=== PATIENT | female | born 1940 | race Caucasian/White ===

== ENCOUNTER 2017-01-19 18:00 | Inpatient (IN) | payer BC, MEDICARE ==
[2017-01-19] VITALS (8 sets, daily range): BP systolic 134–172; BP diastolic 85–108; PULSE 78–98; RESP 16–22; TEMP 97.3–98.2; O2SAT 97–100
[~2017-01-19] VITALS: Ht 154.9 cm; Wt 88.6 kg
[2017-01-19] MEDS ORDERED: methylPREDNISolone SOD SUCC 125 MG/2 ML VIAL IVP ONE (19:00)
[2017-01-19] MEDS ORDERED: SODIUM CHLORIDE 0.9% FLUSH 10 ML FLUSH IVF PRN (19:00)
[2017-01-19] MEDS: RESP: ALBUTEROL 2.5 MG/IPRATROPIUM 0.5 MG NEB (SCH) INH ×2 (19:02→19:09)
[2017-01-19 19:07] LABS: AUTOMATED NEUTROPHIL # 7.7 TH/MM3 (1.8-7.7); BASOPHIL % 0.4 % (0.0-2.0); EOSINOPHIL % 0.3 % (0.0-4.0); HEMATOCRIT 41.2 % (35.0-46.0); LYMPH % 11.3 % (9.0-44.0); MEAN CELL VOLUME 93.9 FL (80.0-100.0); MEAN CORPUSCULAR HEMOGLOBIN 31.6 PG (27.0-34.0); MEAN CORPUSCULAR HGB CONC 33.6 % (32.0-36.0); MONO % 5.7 % (0.0-8.0); NEUT % 82.3 % (16.0-70.0); PLATELET COUNT 357 TH/MM3 (150-450); RED BLOOD COUNT 4.39 MIL/MM3 (4.00-5.30); RED CELL DISTRIBUTION WIDTH 18.3 % (11.6-17.2); WHITE BLOOD COUNT 9.2 TH/MM3 (4.0-11.0)
[2017-01-19 19:11] LABS: HEMO FLAGS DIFF FINAL
[2017-01-19 19:17] LABS: CHLORIDE 97 MEQ/L (98-107); SODIUM (NA) 134 MEQ/L (136-145)
[2017-01-19 19:21] LABS: ANION GAP 12 MEQ/L (5-15); APTT (PATIENT) 32.4 SEC (24.3-30.1); BICARBONATE 25.5 MEQ/L (21.0-32.0); BLOOD UREA NITROGEN 22 MG/DL (7-18); INTERNATIONAL NORMALIZED RATIO 1.3 RATIO; PROTHROMBIN TIME - PATIENT 14.2 SEC (9.8-11.6)
[2017-01-19 19:24] LABS: ALT (GPT) 29 U/L (10-53); AST (GOT) 24 U/L (15-37)
[2017-01-19 19:25] LABS: GLOMERULAR FILTRATION RATE 48 ML/MIN (>89)
[2017-01-19 19:26] LABS: TOTAL BILIRUBIN ADULT 1.3 MG/DL (0.2-1.0)
[2017-01-19 19:27] LABS: ALKALINE PHOSPHATASE 92 U/L (45-117); CREATINE KINASE 123 U/L (26-192)
--- NOTE | 2017-01-19 19:28 | PD ---
HPI Chief Complaint: Respiratory Symptoms Time Seen by Provider: 18:24 Travel History International Travel<30 days: No Contact w/Intl Traveler<30days: No Traveled to known affect area: No History of Present Illness HPI Patient is a 76-year-old female who comes in complaining of shortness of breath. She has history of COPD and wears oxygen at home, mostly at night. She says she started feeling short of breath yesterday while she was packing cleaning her house. She flew here from [place] today and she says her shortness of breath got worse. She also reports sweating. She has been wearing her oxygen urine since this morning, but still feels very short of breath. She denies any chest pain. She has had some leg swelling. She denies fever or chills. [facility] Past Medical History Atrial Fibrillation: Yes Congestive Heart Failure: Yes COPD: Yes Diabetes: Yes Patient Takes Glucophage: Yes Thyroid Disease: Yes Influenza Vaccination: Yes ?: Not Past Surgical History Eye Surgery: Yes (EYELIDS) Social History Alcohol Use: No Tobacco Use: No (QUIT 1996) Substance Use: No Allergies-Medications (Allergen,Severity, Reaction): Coded Allergies: No Known Allergies (Unverified , 01/19/17) Review of Systems Except as stated in HPI: all other systems reviewed are Neg General / Constitutional: No: Fever, Chills HENT: No: Headaches, Lightheadedness Cardiovascular: No: Chest Pain or Discomfort Respiratory: Positive: Shortness of Breath Gastrointestinal: No: Nausea, Vomiting Musculoskeletal: Positive: Edema Skin: No Rash, No Change in Pigmentation Neurologic: No: Weakness, Dizziness Physical Exam Narrative GENERAL: Awake and alert, in no acute distress. SKIN: Sweaty, no lesions or signs of infection. HEAD: Atraumatic. Normocephalic. EYES: Pupils equal and round. No scleral icterus. ENT: Mucous membranes pink and moist. NECK: Trachea midline. No JVD. CARDIOVASCULAR: Regular rate and rhythm. No murmur appreciated. RESPIRATORY: No accessory muscle use. Clear to auscultation. Breath sounds equal bilaterally. GASTROINTESTINAL: Abdomen soft, non-tender, nondistended. MUSCULOSKELETAL: No obvious deformities. No clubbing. No cyanosis. 1+ pitting edema bilateral lower extremities. NEUROLOGICAL: Awake and alert. No obvious cranial nerve deficits. Motor grossly within normal limits. Normal speech. PSYCHIATRIC: Appropriate mood and affect; insight and judgment normal. Data Data Last Documented VS Vital Signs Date Time Temp Pulse Resp B/P Pulse Ox O2 Delivery O2 Flow Rate FiO2 01/19/17 18:30 98 16 158/99 99 Nasal Cannula 4 01/19/17 18:15 98.2 Orders Complete Blood Count With Diff (01/19/17 18:47) Comprehensive Metabolic Panel (01/19/17 18:47) B-Type Natriuretic Peptide (01/19/17 18:47) Act Partial Throm Time (Ptt) (01/19/17 18:47) Prothrombin Time / Inr (Pt) (01/19/17 18:47) Ckmb (Isoenzyme) Profile (01/19/17 18:47) Troponin I (01/19/17 18:47) Iv Access Insert/Monitor (01/19/17 18:47) Electrocardiogram (01/19/17 18:47) Ecg Monitoring (01/19/17 18:47) Oximetry (01/19/17 18:47) Oxygen Administration (01/19/17 18:47) Chest, Single Ap (01/19/17 18:47) Ct Pulmonary Angiogram (01/19/17 18:47) Sodium Chloride 0.9% Flush (Ns Flush) (01/19/17 19:00) Methylprednisolone So Succ Inj (Solumedr (01/19/17 19:00) Albuterol-Ipratropium Neb (Duoneb Neb) (01/19/17 19:00) Labs Laboratory Tests Test 01/19/17 18:20 White Blood Count 9.2 TH/MM3 Red Blood Count 4.39 MIL/MM3 Hemoglobin 13.9 GM/DL Hematocrit 41.2 % Mean Corpuscular Volume 93.9 FL Mean Corpuscular Hemoglobin 31.6 PG Mean Corpuscular Hemoglobin 33.6 % Concent Red Cell Distribution Width 18.3 % Platelet Count 357 TH/MM3 Mean Platelet Volume 8.3 FL Neutrophils (%) (Auto) 82.3 % Lymphocytes (%) (Auto) 11.3 % Monocytes (%) (Auto) 5.7 % Eosinophils (%) (Auto) 0.3 % Basophils (%) (Auto) 0.4 % Neutrophils # (Auto) 7.7 TH/MM3 Lymphocytes # (Auto) 1.0 TH/MM3 Monocytes # (Auto) 0.5 TH/MM3 Eosinophils # (Auto) 0.0 TH/MM3 Basophils # (Auto) 0.0 TH/MM3 CBC Comment DIFF FINAL Differential Comment Prothrombin Time 14.2 SEC Prothromb Time International 1.3 RATIO Ratio Activated Partial 32.4 SEC Thromboplast Time Sodium Level 134 MEQ/L Potassium Level 4.0 MEQ/L Chloride Level 97 MEQ/L Carbon Dioxide Level 25.5 MEQ/L Anion Gap 12 MEQ/L Blood Urea Nitrogen 22 MG/DL Random Glucose 164 MG/DL Calcium Level 9.3 MG/DL Albumin 4.0 GM/DL MDM Medical Decision Making Medical Screen Exam Complete: Yes Emergency Medical Condition: Yes Interpretation(s) ECG shows A. fib, rate controlled at 86. Differential Diagnosis COPD versus pneumonia versus ACS versus PE Narrative Course Patient is a 76-year-old female who comes in complaining of shortness of breath. Exam shows no acute abnormalities other than sweaty skin. IV established, labs sent. Patient given 3 duo nebs as well as Solu-Medrol. Patient signed out to Dr. Dyer to follow-up testing and disposition appropriately. Condition: Stable Sonal Kumar MD January 19, 2017 19:28
[2017-01-19 19:39] LABS: CKMB 5.5 NG/ML (0.5-3.6)
--- NOTE | 2017-01-19 19:56 | RADHPO ---
EXAM DATE/TIME: 01/19/2017 18:54 [facility] COMPARISON: No previous studies available for comparison. INDICATIONS : Shortness of breath. MEDICAL HISTORY : None. SURGICAL HISTORY : None. ENCOUNTER: Initial ACUITY: 1 day PAIN SCORE: 0/10 LOCATION: Bilateral chest FINDINGS: A single view of the chest demonstrates cardiomegaly and some interstitial prominence characteristic of mild edema. Small effusions. No pneumothorax. CONCLUSION: 1. Mild congestive heart failure. Alan Macias MD on January 19, 2017 at 19:52 Board Certified Radiologist. This report was verified electronically.
[2017-01-19] MEDS ORDERED: HYDR25TA5 PO (19:59)
[2017-01-19] MEDS ORDERED: AMIO200T PO (19:59)
[2017-01-19] MEDS ORDERED: METF1000 PO (19:59)
[2017-01-19] MEDS ORDERED: LOSA100T PO (19:59)
[2017-01-19] MEDS ORDERED: LEVO125T4 PO (19:59)
[2017-01-19] MEDS ORDERED: APIX5TAB PO (19:59)
[2017-01-19] MEDS ORDERED: FUROSEMIDE 40 MG/4 ML VIAL IV PUSH ONE (20:00)
--- NOTE | 2017-01-19 20:10 | RADHPO ---
EXAM DATE/TIME: 01/19/2017 19:34 [facility] COMPARISON: No previous studies available for comparison. INDICATIONS : Shortness of breath. IV CONTRAST: 70 cc Omnipaque 350 (iohexol) IV RADIATION DOSE: 17.86 CTDIvol (mGy) MEDICAL HISTORY : Congestive hearrt failure. Chronic obstructive pulmonary disease. Diabetes. SURGICAL HISTORY : None. ENCOUNTER: Initial ACUITY: 1 day PAIN SCALE: 0/10 LOCATION: chest TECHNIQUE: Volumetric scanning of the chest was performed using a pulmonary embolism protocol MIP images were re constructed. Using automated exposure control and adjustment of the mA and/or kV according to patien t size, radiation dose was kept as low as reasonably achievable to obtain optimal diagnostic quality images. FINDINGS: No filling defects to suggest pulmonary embolic disease. There are small bilateral pleural effusions are, right greater than left. Minimal interstitial edema. Moderate coronary calcifications. There is a small hiatal hernia. There is a 6 mm nodule in the left lower lobe posteriorly. Laboratory calcifications. Mildly enlarged 1.3 cm prevascular lymph node. Multiple 2 cm subcarinal lymph node. CONCLUSION: 1. Negative for pulmonary embolus. Small pleural effusions. Moderate coronary calcifications. Mild me diastinal adenopathy. Mild interstitial edema. Alan Macias MD on January 19, 2017 at 20:03 Board Certified Radiologist. This report was verified electronically.
[2017-01-19 20:39] LABS: BLOOD, URINE SMALL (NEG); GLUCOSE,URINE NEG (NEG); KETONE, URINE NEG (NEG); NITRITE,URINE NEG (NEG)
[2017-01-19] MEDS ORDERED: IOHEXOL 350 MG/ML 10 ML VIAL (for RAD DIAG) IV ONE (20:40)
[2017-01-19 20:44] LABS: URINE COLOR STRAW (YELLW/STRAW)
[2017-01-19 20:45] LABS: BACTERIA, URINE OCC /hpf; COMMENT (UR) CULTURE INDICATED; CULTURE IF INDICATED CULTURE INDICATED; SQUAMOUS EPITHELIAL CELL URINE 0-5 /hpf (0-5)
--- NOTE | 2017-01-19 20:48 | PD ---
Physical Exam Time Seen by Provider: 20:[address] Hull left this patient with me to check the laboratory and CT and make a disposition. Data Data Last Documented VS Vital Signs Date Time Temp Pulse Resp B/P Pulse Ox O2 Delivery O2 Flow Rate FiO2 01/19/17 18:30 98 16 158/99 99 Nasal Cannula 4 01/19/17 18:15 98.2 Orders Complete Blood Count With Diff (01/19/17 18:47) Comprehensive Metabolic Panel (01/19/17 18:47) B-Type Natriuretic Peptide (01/19/17 18:47) Act Partial Throm Time (Ptt) (01/19/17 18:47) Prothrombin Time / Inr (Pt) (01/19/17 18:47) Ckmb (Isoenzyme) Profile (01/19/17 18:47) Troponin I (01/19/17 18:47) Iv Access Insert/Monitor (01/19/17 18:47) Electrocardiogram (01/19/17 18:47) Ecg Monitoring (01/19/17 18:47) Oximetry (01/19/17 18:47) Oxygen Administration (01/19/17 18:47) Chest, Single Ap (01/19/17 18:47) Ct Pulmonary Angiogram (01/19/17 18:47) Sodium Chloride 0.9% Flush (Ns Flush) (01/19/17 19:00) Methylprednisolone So Succ Inj (Solumedr (01/19/17 19:00) Albuterol-Ipratropium Neb (Duoneb Neb) (01/19/17 19:00) CKMB (01/19/17 18:20) CKMB% (01/19/17 18:20) Urinalysis - C+S If Indicated (01/19/17 19:31) Furosemide Inj (Lasix Inj) (01/19/17 20:00) Iohexol 350 Inj (Omnipaque 350 Inj) (01/19/17 20:40) Urine Culture (01/19/17 20:30) Ceftriaxone Inj (Rocephin Inj) (01/19/17 21:00) Bedside Glucose MARIBEL.AC&HS (01/19/17 20:47) Blood Glucose Goal (Criteria) (01/19/17 20:47) Hypoglycemia 51 - 69 Mg/Dl (01/19/17 20:47) Hypoglycemia 50 Mg/Dl Or < (01/19/17 20:47) Notify Dr: Other (01/19/17 20:47) Dextrose 50% In Juliane (Vial) Inj (D50w (Vi (01/19/17 21:00) Glucagon Inj (Glucagon Inj) (01/19/17 21:00) Insulin Aspart Supplemtl Scale (Novolog (01/19/17 21:00) Admit To Inpatient (01/19/17 ) Vital Signs (Adult) Q4H (01/19/17 20:47) Activity Oob With Assistance (01/19/17 20:47) Reclamation Furnace Operator / Telemetry .CONTINUOUS (01/19/17 20:47) Intake + Output MARIBEL.QSHIFT (01/19/17 20:47) Diet 1800 Ada Cons Carb (01/20/17 Breakfast) Sodium Chlor 0.9% 1000 Ml Inj (Ns 1000 M (01/19/17 20:47) Sodium Chloride 0.9% Flush (Ns Flush) (01/19/17 21:00) Sodium Chloride 0.9% Flush (Ns Flush) (01/19/17 21:00) Ondansetron Inj (Zofran Inj) (01/19/17 21:00) Bisacodyl Supp (Dulcolax Supp) (01/19/17 21:00) Comprehensive Metabolic Panel (01/20/17 06:00) Complete Blood Count With Diff (01/20/17 06:00) Troponin I (01/20/17 00:00) Troponin I (01/20/17 06:00) Pharmacologic Contraindication (01/19/17 20:47) Acetaminophen (Tylenol) (01/19/17 21:00) Acetamin-Hydrocod 325-5 Mg ([place] 5-325 (01/19/17 21:00) Morphine Inj (Morphine Inj) (01/19/17 21:00) Inpatient Certification (01/19/17 ) Amiodarone (Cordarone) (01/20/17 09:00) Apixaban (Eliquis) (01/19/17 21:00) Losartan (Cozaar) (01/20/17 09:00) Labs Laboratory Tests Test 01/19/17 01/19/17 18:20 20:30 White Blood Count 9.2 TH/MM3 Red Blood Count 4.39 MIL/MM3 Hemoglobin 13.9 GM/DL Hematocrit 41.2 % Mean Corpuscular Volume 93.9 FL Mean Corpuscular Hemoglobin 31.6 PG Mean Corpuscular Hemoglobin 33.6 % Concent Red Cell Distribution Width 18.3 % Platelet Count 357 TH/MM3 Mean Platelet Volume 8.3 FL Neutrophils (%) (Auto) 82.3 % Lymphocytes (%) (Auto) 11.3 % Monocytes (%) (Auto) 5.7 % Eosinophils (%) (Auto) 0.3 % Basophils (%) (Auto) 0.4 % Neutrophils # (Auto) 7.7 TH/MM3 Lymphocytes # (Auto) 1.0 TH/MM3 Monocytes # (Auto) 0.5 TH/MM3 Eosinophils # (Auto) 0.0 TH/MM3 Basophils # (Auto) 0.0 TH/MM3 CBC Comment DIFF FINAL Differential Comment Prothrombin Time 14.2 SEC Prothromb Time International 1.3 RATIO Ratio Activated Partial 32.4 SEC Thromboplast Time Sodium Level 134 MEQ/L Potassium Level 4.0 MEQ/L Chloride Level 97 MEQ/L Carbon Dioxide Level 25.5 MEQ/L Anion Gap 12 MEQ/L Blood Urea Nitrogen 22 MG/DL Creatinine 1.10 MG/DL Estimat Glomerular Filtration 48 ML/MIN Rate Random Glucose 164 MG/DL Calcium Level 9.3 MG/DL Total Bilirubin 1.3 MG/DL Aspartate Amino Transf 24 U/L (AST/SGOT) Alanine Aminotransferase 29 U/L (ALT/SGPT) Alkaline Phosphatase 92 U/L Total Creatine Kinase 123 U/L Creatine Kinase MB 5.5 NG/ML Troponin I 0.13 NG/ML B-Type Natriuretic Peptide 669 PG/ML Total Protein 7.8 GM/DL Albumin 4.0 GM/DL Urine Color STRAW Urine Turbidity SLIGHT Urine pH 5.0 Urine Specific [place] 1.026 Urine Protein 100 mg/dL Urine Glucose (UA) NEG mg/dL Urine Ketones NEG mg/dL Urine Occult Blood SMALL Urine Nitrite NEG Urine Bilirubin NEG Urine Leukocyte Esterase SMALL Urine RBC 3-5 /hpf Urine WBC 20-24 /hpf Urine WBC Clumps FEW Urine Squamous Epithelial 0-5 /hpf Cells Urine Bacteria OCC /hpf Microscopic Urinalysis Comment CULTURE INDICATED MDM Medical Record Reviewed: Yes Supervised Visit with CECI: Yes Interpretation(s) The chest x-ray shows congestive heart failure with pulmonary edema. The CTA is negative for pulmonary embolus. There are small pleural effusions and moderate coronary calcifications. There is mild mediastinal adenopathy and mild interstitial edema. Differential Diagnosis COPD with acute exacerbation, pulmonary edema, non-STEMI myocardial infarction, acute coronary syndrome, electrolyte imbalance Narrative Course The patient has congestive heart failure with pulmonary edema. She has elevation of both the CK-MB and troponin I. I discussed the patient with Dr. Mcgrath and Dr. Campos. Dr. Mcgrath requested that the patient be transferred to [facility]. Physician Communication Physician Communication I discussed the patient with Dr. Mcgrath and Andres Diagnosis Primary Impression: Pulmonary edema with congestive heart failure Additional Impression: Elevated troponin I level Admitting Information Admitting Physician Requests: Admit Condition: Stable Efraín Dyer MD January 19, 2017 20:48
[2017-01-19] MEDS ORDERED: ONDANSETRON HCL 4 MG/2 ML VIAL IVP PRN (21:00)
[2017-01-19] MEDS ORDERED: SODIUM CHLORIDE 0.9% FLUSH 10 ML FLUSH IV FLUSH PRN (21:00)
[2017-01-19] MEDS ORDERED: GLUCAGON 1 MG/ML VIAL OTHER PRN (21:00)
[2017-01-19] MEDS ORDERED: MORPHINE SULFATE 4 MG/ML INJ IV PRN (21:00)
[2017-01-19] MEDS ORDERED: DEXTROSE 50% IN WATER 50 ML VIAL(D50) IV PUSH PRN (21:00)
[2017-01-19] MEDS ORDERED: ACETAMINOPHEN 325 MG TAB PO PRN (21:00)
[2017-01-19] MEDS ORDERED: BISACODYL 10 MG SUPP RECTAL PRN (21:00)
[2017-01-19] MEDS ORDERED: ACETAMINOPHEN/HYDROcodone 325 MG/5 MG TAB PO PRN (21:00)
--- NOTE | 2017-01-19 21:36 | EKG ---
Date Performed: 01/19/2017 Time Performed: 18:07:38 PTAGE: 76 years EKG: Probable atrial fibrillation with PVC(s) Incomplete LBBB Anteroseptal infarct - age undeter mined Lateral ST-T changes may be due to myocardial ischemia Low QRS voltages in limb leads Abnormal ECG NO PREVIOUS TRACING DOCTOR: Anup Mcgrath Interpretating Date/Time 01/19/2017 21:35:13
[2017-01-19] MEDS: APIXABAN 5 MG TABLET PO SCH (22:49)
[2017-01-19] MEDS: cefTRIAXone INJ 1,000 MG in SODIUM CHLORIDE 0.9% INJ 100 ML IV SCH (22:50)
[2017-01-19] MEDS: SODIUM CHLORIDE 0.9% FLUSH 10 ML FLUSH IV FLUSH SCH (22:53)
[2017-01-19] MEDS: INSULIN ASPART SUPPLEMENTAL SCALE SQ SCH (22:53)
[2017-01-19] MEDS: SODIUM CHLOR 0.9% 1000 ML INJ 1,000 ML IV SCH (23:29)
[2017-01-20] VITALS (10 sets, daily range): BP systolic 128–160; BP diastolic 70–88; PULSE 64–80; RESP 16–20; TEMP 97.6–98.7; O2SAT 99–100
--- NOTE | 2017-01-20 04:32 | HHI.HP ---
[facility] Service [facility] Primary Care Physician Non-Staff Admission Diagnosis congestive heart failure with pulmonary edema, elevated troponin I Diagnoses: (1) Pulmonary edema with congestive heart failure (2) Elevated troponin I level Chief Complaint: progressively worsening shortness of breath Travel History International Travel<30 Days: No Contact w/Intl Traveler <30 Da: No Traveled to Known Affected Are: No History of Present Illness Ms. Amaya is a 76 year-old female with a history of COPD, atrial fibrillation, congestive heart failure, type 2 diabetes mellitus, two recent episodes of pneumonia, and hypothyroidism who presented to the ER on 01/19/17 complaining of shortness of breath. She is visiting from [place] and arrived via air travel today. Chest x-ray showed congestive heart failure with pulmonary edema. CT pulmonary angiogram was negative for PE. BNP was elevated at 669. Initial troponin I also elevated at 0.13. The patient is seen in her hospital room. She reports that she has chronic shortness of breath with no recent increase until after her plane flight from [place] to [place] on 01/19/2017. She states she is here with her family and as soon as she landed in [place], she started having difficulty with shortness of breath with exertion. It got progressively worse and she was short of breath walking around the hotel room. "I can't even walk 6 feet without getting short of breath". Symptoms were accompanied by chills and diaphoresis. She denies chest pain with these symptoms but reports some mild nausea. She has new onset of atrial fibrillation in November following a couple of episodes of pneumonia with hospitalization. She is being anticoagulated prior to attempted elective cardioversion. She saw her charge operator in [place] on before leaving and was cleared to travel. She denies any history of coronary artery disease/open heart surgery/stent placement. She denies any diarrhea, hematuria, or dysuria. . Review of Systems Except as stated in HPI: all other systems reviewed are Neg Past Family Social History Past Medical History COPD - has home oxygen that she wears at night 4 liters NC Atrial fibrillation new onset as of November 2016 Congestive heart failure Type 2 diabetes mellitus Hypothyroidism Arthritis Pneumonia twice since June 2016 Hypertension . Past Surgical History Bilateral tear duct surgery Steroid injections left knee Denies any other surgeries Reported Medications Reported Meds & Active Scripts Active Reported Eliquis (Apixaban) 5 Mg Tab 5 Mg PO BID Amiodarone (Amiodarone HCl) 200 Mg Tab 200 Mg PO DAILY Metformin (Metformin HCl) 1,000 Mg Tab 1,000 Mg PO BIDPC With meals Hydrochlorothiazide 25 Mg Tab 25 Mg PO DAILY Losartan (Losartan Potassium) 100 Mg Tab 100 Mg PO DAILY Levothyroxine (Levothyroxine Sodium) 125 Mcg Tab 125 Mcg PO DAILY . Allergies: Coded Allergies: No Known Allergies (Unverified , 01/19/17) Active Ordered Medications Current Medications Sodium Chloride (NS Flush) 2 ml UNSCH PRN IVF FLUSH AFTER USING IV ACCESS; Start 01/19/17 at 19:00; Stop 01/19/17 at 21:13; Status DC Methylprednisolone Sodium Succinate (SoluMEDROL INJ) 125 mg ONCE ONCE IVP Last administered on 01/19/17 19:00; Start 01/19/17 at 19:00; Stop 01/19/17 at 19: 01; Status DC Albuterol/ Ipratropium (Duoneb Neb) 1 ampule Q15M INH Last administered on 19:09; Start 01/19/17 at 19:00; Stop 01/19/17 at 19:31; Status DC Furosemide (Lasix Inj) 40 mg ONCE ONCE IV PUSH Last administered on 01/19/17 20:43; Start 01/19/17 at 20:00; Stop 01/19/17 at 20:01; Status DC Iohexol 70 ml 70 ml STK-MED ONCE IV Last administered on 01/19/17 20:40; Start 01/19/17 at 20:40; Stop 01/19/17 at 20:41; Status DC Ceftriaxone Sodium/Sodium Chloride (Rocephin Inj/NS Inj) 100 ml @ 200 mls/hr Q24H IV Last administered on 01/19/17 22:50; Start 01/19/17 at 21:00 Dextrose (D50w (Vial) Inj) 25 ml UNSCH PRN IV PUSH HYPOGLYCEMIA-SEE COMMENTS; Start 01/19/17 at 21:00 Glucagon (Glucagon Inj) 1 mg UNSCH PRN OTHER HYPOGLYCEMIA-SEE COMMENTS; Start 01/19/17 at 21:00 Insulin Aspart 1 1 ACHS SLIDING SCALE SQ Last administered on 01/19/17 22:53; Start 01/19/17 at 21:00 Sodium Chloride (NS 1000 ml Inj) 1,000 ml @ 50 mls/hr Q20H IV Last administered on 01/19/17 23:29; Start 01/19/17 at 20:47 Sodium Chloride (NS Flush) 2 ml UNSCH PRN IV FLUSH FLUSH AFTER USING IV ACCESS ; Start 01/19/17 at 21:00 Sodium Chloride (NS Flush) 2 ml BID IV FLUSH Last administered on 01/19/17 22: 53; Start 01/19/17 at 21:00 Ondansetron HCl (Zofran Inj) 4 mg Q6H PRN IVP NAUSEA OR VOMITING; Start at 21:00 Bisacodyl (Dulcolax Supp) 10 mg DAILY PRN RECTAL CONSTIPATION; Start 01/19/17 at 21:00 Acetaminophen (Tylenol) 650 mg Q6H PRN PO FEVER/PAIN SCALE 1 TO 2; Start at 21:00 Acetaminophen/ Hydrocodone Bitart ([place] 5-325 Mg) 1 tab Q4H PRN PO PAIN SCALE 3 TO 5; Start 01/19/17 at 21:00 Morphine Sulfate (Morphine Inj) 2 mg Q3H PRN IV Pain 6-10; Start 01/19/17 at 21: 00 Amiodarone HCl (Cordarone) 200 mg DAILY PO ; Start 01/20/17 at 09:00 Apixaban (Eliquis) 5 mg BID PO Last administered on 01/19/17 22:49; Start at 21:00 Losartan Potassium (Cozaar) 100 mg DAILY PO ; Start 01/20/17 at 09:00 . Family History Both parents from myocardial infarction in advanced stage . Social History Tobacco: Smoked 1 pack to 1-1/2 packs per day for about 45 years (patient started sneaking parents cigarettes at age 11) Alcohol: Denies Illicit Drugs: Denies . Physical Exam Vital Signs Vital Signs Date Time Temp Pulse Resp B/P Pulse Ox O2 Delivery O2 Flow Rate FiO2 01/20/17 00:00 97.9 80 20 143/70 100 Nasal Cannula 4 01/19/17 23:00 82 20 167/88 100 Nasal Cannula 4 01/19/17 22:00 78 20 148/94 100 Nasal Cannula 4 01/19/17 22:00 20 99 Nasal Cannula 4 01/19/17 21:00 86 20 153/87 100 Nasal Cannula 4 01/19/17 20:00 88 20 170/85 99 Nasal Cannula 4 01/19/17 19:30 82 20 166/108 97 Nasal Cannula 4 01/19/17 19:00 97.3 87 20 172/100 100 Nasal Cannula 4 01/19/17 19:00 20 100 Nasal Cannula 4 01/19/17 18:30 98 16 158/99 99 Nasal Cannula 4 01/19/17 18:20 96 22 99 Nasal Cannula 4 01/19/17 18:15 99 Nasal Cannula 4 01/19/17 18:15 98.2 90 22 134/91 01/19/17 18:15 22 99 Nasal Cannula 4 Physical Exam GENERAL: This is an obese elderly female patient, in no apparent distress. SKIN: No rashes, ecchymoses or lesions. Cool and somewhat diaphoretic. HEAD: Atraumatic. Normocephalic. EYES: No scleral icterus. No injection or drainage. ENT: Nose without bleeding, purulent drainage. NECK: Trachea midline. No JVD or lymphadenopathy. CARDIOVASCULAR: Regular rate and rhythm without murmurs, gallops, or rubs. 1+ pitting edema from knees to feet. RESPIRATORY: Bibasilar rales auscultated. Breath sounds equal bilaterally. No wheezes. GASTROINTESTINAL: Abdomen soft, non-tender, nondistended. No guarding. MUSCULOSKELETAL: Extremities without clubbing, cyanosis. No calf tenderness. NEUROLOGICAL: Awake and alert. Motor and sensory grossly within normal limits. Normal speech. . Laboratory Laboratory Tests Test 01/19/17 01/19/17 01/20/17 18:20 20:30 00:00 White Blood Count 9.2 Red Blood Count 4.39 Hemoglobin 13.9 Hematocrit 41.2 Mean Corpuscular Volume 93.9 Mean Corpuscular Hemoglobin 31.6 Mean Corpuscular Hemoglobin 33.6 Concent Red Cell Distribution Width 18.3 Platelet Count 357 Mean Platelet Volume 8.3 Neutrophils (%) (Auto) 82.3 Lymphocytes (%) (Auto) 11.3 Monocytes (%) (Auto) 5.7 Eosinophils (%) (Auto) 0.3 Basophils (%) (Auto) 0.4 Neutrophils # (Auto) 7.7 Lymphocytes # (Auto) 1.0 Monocytes # (Auto) 0.5 Eosinophils # (Auto) 0.0 Basophils # (Auto) 0.0 CBC Comment DIFF FINAL Differential Comment Prothrombin Time 14.2 Prothromb Time International 1.3 Ratio Activated Partial 32.4 Thromboplast Time Sodium Level 134 Potassium Level 4.0 Chloride Level 97 Carbon Dioxide Level 25.5 Anion Gap 12 Blood Urea Nitrogen 22 Creatinine 1.10 Estimat Glomerular Filtration 48 Rate Random Glucose 164 Calcium Level 9.3 Total Bilirubin 1.3 Aspartate Amino Transf 24 (AST/SGOT) Alanine Aminotransferase 29 (ALT/SGPT) Alkaline Phosphatase 92 Total Creatine Kinase 123 Creatine Kinase MB 5.5 Troponin I 0.13 0.11 B-Type Natriuretic Peptide 669 Total Protein 7.8 Albumin 4.0 Urine Color STRAW Urine Turbidity SLIGHT Urine pH 5.0 Urine Specific [place] 1.026 Urine Protein 100 Urine Glucose (UA) NEG Urine Ketones NEG Urine Occult Blood SMALL Urine Nitrite NEG Urine Bilirubin NEG Urine Leukocyte Esterase SMALL Urine RBC 3-5 Urine WBC 20-24 Urine WBC Clumps FEW Urine Squamous Epithelial 0-5 Cells Urine Bacteria OCC Microscopic Urinalysis Comment CULTURE INDICATED Date/Time Procedure Status Source Growth 01/19/17 20:30 Urine Culture Received Urine Clean Catch Pending Result Diagram: 01/19/17181901/19/171819 Imaging Last Impressions Chest X-Ray 01/19/171846 Signed Impressions: Service Date/Time: Thursday, January 19, 2017 18:54 - CONCLUSION: 1. Mild congestive heart failure. Alan Macias MD CT Angiography 01/19/171846 Signed Impressions: Service Date/Time: Thursday, January 19, 2017 19:34 - CONCLUSION: 1. Negative for pulmonary embolus. Small pleural effusions. Moderate coronary calcifications. Mild mediastinal adenopathy. Mild interstitial edema. Alan Macias MD . Assessment and Plan Problem List: (1) Pulmonary edema with congestive heart failure ICD Code: I50.1 Status: Acute (2) Elevated troponin I level ICD Code: R74.8 Status: Acute (3) Urinary tract infection ICD Code: N39.0 Status: Acute Assessment and Plan Ms. Mamula is a 76 year-old female who traveled by air from [place] to [place] on 01/19/2017 and presented to the emergency room with shortness of breath. She was found to have mild CHF on x-ray, elevated troponin I, and UTI. Acute congestive heart failure with pulmonary edema - Chest x-ray shows mild congestive heart failure - Pulmonary angiogram shows small pleural effusions, moderate coronary calcifications, mild mediastinal adenopathy and mild interstitial edema - Monitor I&Os every shift - Initial troponin I - 0.13, second troponin I - 0.11 (elevation may be related to renal insufficiency) and BNP - 669 - Consult cardiology - Continuous cardiac telemetry to monitor for arrhythmia - Lasix 20 mg IV BID Troponin I elevation - Serial cardiac enzymes to rule out ACS - follow trends Type 2 diabetes mellitus - Hold home diabetes medications for now - discussed with patient - Accu-Cheks before meals and at bedtime with low-dose sliding scale coverage - Hypoglycemia protocol - Monitor trends and blood glucose and adjust treatment as indicated - 1800 ADA diabetic diet UTI suspected - UA with small blood and leukocyte esterase and occasional bacteria - Ceftriaxone 1 g IV every 24 hours - Urine culture sent - follow results and adjust treatment if indicated DVT prophylaxis - Continue home Eliquis 5 mg by mouth twice a day . Discussed Condition With Dr. Campos, patient, RN . Collaborating MD Comments Agree w/ above assessment and plan [id number] tx from [place] for Acute CHF/NSTEMI -Diuresis w/ Lasix IV -Strict I/O -Repeat BNP for trend -Check Echo -Check serial cardiac enzymes -Resume home Eliquis -Dr. Mcgrath consulted by ER physician, castillo riggs for possible cath -DM-sliding scale w/ Accu-Cheks -UTI-Rocephin IV Physician Certification 2 Midnight Certification Type: Admission for Inpatient Services Order for Inpatient Services The services are ordered in accordance with Medicare regulations or non- Medicare payer requirements, as applicable. In the case of services not specified as inpatient-only, they are appropriately provided as inpatient services in accordance with the 2-midnight benchmark. Estimated LOS (days): 3 days is the estimated time the patient will need to remain in the hospital, assuming treatment plan goals are met and no additional complications. Post-Hospital Plan: Not yet determined Barbara Bruno January 20, 2017 04:32 Ying Campos MD January 20, 2017 05:47
[2017-01-20] MEDS: LEVOTHYROXINE SODIUM 125 MCG TAB PO SCH (06:06)
[2017-01-20] MEDS: INSULIN ASPART SUPPLEMENTAL SCALE SQ SCH ×4 (06:37→20:26)
--- NOTE | 2017-01-20 08:50 | HHI.PR ---
Subjective Remarks No acute events overnight. Afebrile, vital signs stable. Patient currently on 4.5 L nasal cannula with oxygen saturation 100%. She states she uses oxygen at home, 4 L at nighttime. She states her shortness of breath is dramatically improved and has no complaints at this time. Objective Vitals Vital Signs Date Time Temp Pulse Resp B/P Pulse Ox O2 Delivery O2 Flow Rate FiO2 01/20/17 05:21 98.7 68 16 128/82 100 01/20/17 02:00 98.7 72 16 153/76 100 01/20/17 00:00 97.9 80 20 143/70 100 Nasal Cannula 4 01/19/17 23:00 82 20 167/88 100 Nasal Cannula 4 01/19/17 22:00 78 20 148/94 100 Nasal Cannula 4 01/19/17 22:00 20 99 Nasal Cannula 4 01/19/17 21:00 86 20 153/87 100 Nasal Cannula 4 01/19/17 20:00 88 20 170/85 99 Nasal Cannula 4 01/19/17 19:30 82 20 166/108 97 Nasal Cannula 4 01/19/17 19:00 97.3 87 20 172/100 100 Nasal Cannula 4 01/19/17 19:00 20 100 Nasal Cannula 4 01/19/17 18:30 98 16 158/99 99 Nasal Cannula 4 01/19/17 18:20 96 22 99 Nasal Cannula 4 01/19/17 18:15 99 Nasal Cannula 4 01/19/17 18:15 98.2 90 22 134/91 01/19/17 18:15 22 99 Nasal Cannula 4 I/O 01/19/17 01/19/17 01/19/17 01/20/17 01/20/17 01/20/17 07:00 15:00 23:00 07:00 15:00 23:00 Intake Total 250 ml Balance 250 ml Intake Oral 150 ml IV Total 100 ml # Voids 1 1 Result Diagram: 01/19/17181901/19/171819 Objective Remarks GENERAL: This is an obese elderly female patient, in no apparent distress. SKIN: No rashes, ecchymoses or lesions. Cool and somewhat diaphoretic. HEAD: Atraumatic. Normocephalic. EYES: No scleral icterus. No injection or drainage. ENT: Nose without bleeding, purulent drainage. NECK: Trachea midline. No JVD or lymphadenopathy. CARDIOVASCULAR: Regular rate and rhythm without murmurs, gallops, or rubs. 1+ pitting edema from knees to feet. RESPIRATORY: Bibasilar rales auscultated. Breath sounds equal bilaterally. No wheezes. GASTROINTESTINAL: Abdomen soft, non-tender, nondistended. No guarding. MUSCULOSKELETAL: Extremities without clubbing, cyanosis. No calf tenderness. NEUROLOGICAL: Awake and alert. Motor and sensory grossly within normal limits. Normal speech. A/P Problem List: (1) Pulmonary edema with congestive heart failure ICD Code: I50.1 Status: Acute (2) Elevated troponin I level ICD Code: R74.8 Status: Acute (3) Urinary tract infection ICD Code: N39.0 Status: Acute Assessment and Plan Ms. Amaya is a 76 year-old female who traveled by air from [place] to [place] on 01/19/2017 and presented to the emergency room with shortness of breath. She was found to have mild CHF on x-ray, elevated troponin I, and UTI. Acute congestive heart failure with pulmonary edema - Chest x-ray shows mild congestive heart failure - Pulmonary angiogram shows small pleural effusions, moderate coronary calcifications, mild mediastinal adenopathy and mild interstitial edema - Monitor I&Os every shift - Initial troponin I - 0.13, second troponin I - 0.11 (elevation may be related to renal insufficiency) and BNP - 669. Trend BNP. - Consult cardiology - Echo pending - Continuous cardiac telemetry to monitor for arrhythmia - Lasix 20 mg IV BID - Patient currently on 4.5 L nasal cannula. Uses 4 L O2 at nighttime. Troponin I elevation - Serial cardiac enzymes to rule out ACS - follow trends - Likely secondary to renal function - Cardiology consulted as above Type 2 diabetes mellitus - Hold home diabetes medications for now - discussed with patient - Accu-Cheks before meals and at bedtime with low-dose sliding scale coverage - Hypoglycemia protocol - Monitor trends and blood glucose and adjust treatment as indicated - 1800 ADA diabetic diet UTI suspected - UA with small blood and leukocyte esterase and occasional bacteria - Ceftriaxone 1 g IV every 24 hours - Urine culture sent - follow results and adjust treatment if indicated DVT prophylaxis - Continue home Eliquis 5 mg by mouth twice a day Celsa Cook MD R3 January 20, 2017 08:50
[2017-01-20] MEDS ORDERED: FUROSEMIDE 20 MG/2 ML VIAL IV PUSH SCH (09:00)
[2017-01-20] MEDS: APIXABAN 5 MG TABLET PO SCH ×2 (09:06→20:18)
[2017-01-20] MEDS: AMIODARONE 200 MG TAB PO SCH (09:06)
[2017-01-20] MEDS: SODIUM CHLORIDE 0.9% FLUSH 10 ML FLUSH IV FLUSH SCH ×2 (09:07→20:18)
[2017-01-20] MEDS: LOSARTAN 50 MG TAB PO SCH (09:07)
[2017-01-20 09:45] LABS: AUTOMATED NEUTROPHIL # 4.7 TH/MM3 (1.8-7.7); BASOPHIL % 0.2 % (0.0-2.0); HEMATOCRIT 40.7 % (35.0-46.0); HEMO FLAGS DIFF FINAL; LYMPH % 6.7 % (9.0-44.0); LYMPHOCYTE # 0.4 TH/MM3 (1.0-4.8); MEAN CELL VOLUME 94.4 FL (80.0-100.0); MEAN CORPUSCULAR HEMOGLOBIN 31.6 PG (27.0-34.0); MEAN CORPUSCULAR HGB CONC 33.4 % (32.0-36.0); MONO % 4.2 % (0.0-8.0); NEUT % 88.9 % (16.0-70.0); PLATELET COUNT 279 TH/MM3 (150-450); RED BLOOD COUNT 4.31 MIL/MM3 (4.00-5.30); RED CELL DISTRIBUTION WIDTH 18.9 % (11.6-17.2); WHITE BLOOD COUNT 5.3 TH/MM3 (4.0-11.0)
[2017-01-20 10:16] LABS: ALKALINE PHOSPHATASE 88 U/L (45-117); ALT (GPT) 25 U/L (10-53); ANION GAP 13 MEQ/L (5-15); AST (GOT) 13 U/L (15-37); BICARBONATE 28.4 MEQ/L (21.0-32.0); BLOOD UREA NITROGEN 23 MG/DL (7-18); CHLORIDE 93 MEQ/L (98-107); GLOMERULAR FILTRATION RATE 43 ML/MIN (>89); POTASSIUM 3.9 MEQ/L (3.5-5.1); SODIUM (NA) 134 MEQ/L (136-145); TOTAL BILIRUBIN ADULT 1.8 MG/DL (0.2-1.0)
[2017-01-20] MEDS: SODIUM CHLOR 0.9% 1000 ML INJ 1,000 ML IV SCH (14:22)
--- NOTE | 2017-01-20 16:52 | MB ---
cc: ALEENA JUNIOR M.D. DATE OF CONSULTATION: 01/20/2017. REASON FOR CONSULTATION: Shortness of breath, possible heart failure. HISTORY OF PRESENT ILLNESS: Mrs. Amaya is a 76-year-old female with history of atrial fibrillation, COPD, congestive heart failure, diabetes mellitus and high blood pressure. She had an episode of pneumonia in 2016. She just flew in from [place] and is visiting around here. She developed yesterday shortness of breath and signs of congestive heart failure. She was admitted. Since hospitalization, her condition improved. I was consulted for further evaluation and management. The chart was reviewed. The patient was evaluate ALLERGIES: None. SOCIAL HISTORY: Negative for smoking and drinking. FAMILY HISTORY: Noncontributory to her current medical condition. MEDICATIONS: She is on: 1. Eliquis 5 milligrams twice a day. 2. Amiodarone 200 milligrams a day. 3. Metformin 1000 milligrams twice a day. 4. Hydrochlorothiazide 25 milligrams a day. 5. Losartan 100 milligrams a day. 6. Levoxyl 125 micrograms a day. REVIEW OF SYSTEMS: Currently she refers feeling better. No chest pains. Minimal shortness of breath. No vomiting. No fever. PHYSICAL EXAMINATION: GENERAL: Alert, fully oriented. VITAL SIGNS: Blood pressure 137/78, pulse 79, respiratory rate 18. LUNGS: Ventilated. CARDIOVASCULAR: S1 and S2. Irregular. No gallop. No murmur. ABDOMEN: Abdomen soft, obese, no mass. No bruits. EXTREMITIES: With no edema. EKGS: Electrocardiogram shows atrial fibrillation, left bundle-branch block, diffuse S-T changes. LABORATORY DATA: Hemoglobin is 13.6, white blood cell 5.3. INR 1.3. Potassium is 3.9, creatinine is 1.22. Troponin 0.07. BNP 720. ASSESSMENT AND RECOMMENDATIONS: Mrs. Amaya's condition has significantly improved. There is a suspicion of pneumonia. IV Rocephin was initiated. She received some IV Lasix. I will discontinue that and give her some p.o. to go home. Her heart rate is controlled. Troponin is 0.07 currently. BNP is less than 800. At this point my recommendation is: 1. Continue with current management. 2. Continue IV antibiotics. 3. If tomorrow the patient is stable, she can be discharged home on p.o. medications. 4. She will follow with a clinical social worker in [place] when back home during the week. MD JONNY Baker/TIM /4:26 PM /4:45 PM
[2017-01-20] MEDS: cefTRIAXone INJ 1,000 MG in SODIUM CHLORIDE 0.9% INJ 100 ML IV SCH (20:19)
[2017-01-21] VITALS (15 sets, daily range): BP systolic 123–158; BP diastolic 67–94; PULSE 55–82; RESP 18; TEMP 98–98.4; O2SAT 96–98
[2017-01-21] MEDS: LEVOTHYROXINE SODIUM 125 MCG TAB PO SCH (05:24)
[2017-01-21] MEDS: INSULIN ASPART SUPPLEMENTAL SCALE SQ SCH ×4 (05:28→21:00)
[2017-01-21] MEDS: LOSARTAN 50 MG TAB PO SCH (08:29)
[2017-01-21] MEDS: FUROSEMIDE 20 MG TAB PO SCH (08:29)
[2017-01-21] MEDS: APIXABAN 5 MG TABLET PO SCH ×2 (08:29→21:40)
[2017-01-21] MEDS: SODIUM CHLORIDE 0.9% FLUSH 10 ML FLUSH IV FLUSH SCH ×2 (08:29→21:00)
[2017-01-21] MEDS: AMIODARONE 200 MG TAB PO SCH (08:29)
[2017-01-21] MEDS: SODIUM CHLOR 0.9% 1000 ML INJ 1,000 ML IV SCH (10:21)
--- NOTE | 2017-01-21 10:29 | HHI.PR ---
Subjective Remarks Follow up shortness of breath. Patient seen and examined today. Patient denies any further shortness of breath, currently on 1L NC. States she feels much better. Patient has tolerated PO intake, denies any associated nausea or vomiting. Denies any fever, chills or diaphoresis. Objective Vitals Vital Signs Date Time Temp Pulse Resp B/P Pulse Ox O2 Delivery O2 Flow Rate FiO2 01/21/17 09:04 98.0 82 18 152/74 96 01/21/17 07:45 Nasal Cannula 2.00 01/21/17 06:00 55 01/21/17 05:00 57 01/21/17 04:00 66 01/21/17 04:00 Nasal Cannula 2.00 01/21/17 04:00 98.4 66 18 140/74 98 01/21/17 03:00 57 01/21/17 02:00 55 01/21/17 01:00 58 01/21/17 00:00 98.2 58 18 123/67 98 01/21/17 00:00 Nasal Cannula 3.00 01/21/17 00:00 59 01/20/17 23:00 64 01/20/17 22:00 71 01/20/17 21:00 74 01/20/17 20:00 98.0 70 18 136/81 100 01/20/17 20:00 70 01/20/17 15:34 97.6 79 18 137/78 100 01/20/17 11:43 98.1 68 20 130/80 99 I/O 01/20/17 01/20/17 01/20/17 01/21/17 01/21/17 01/21/17 06:59 14:59 22:59 06:59 14:59 22:59 Intake Total 250 ml 720 ml 1080 ml 0 ml Output Total 700 ml Balance 250 ml 720 ml 380 ml 0 ml Intake Oral 150 ml 720 ml 480 ml IV Total 100 ml 600 ml 0 ml Output Urine Total 700 ml # Voids 1 4 # Bowel Movements 2 1 Result Diagram: 01/20/1792301/20/17923 Imaging Last Impressions Chest X-Ray 01/19/171846 Signed Impressions: Service Date/Time: Thursday, January 19, 2017 18:54 - CONCLUSION: 1. Mild congestive heart failure. Alan Macias MD CT Angiography 01/19/171846 Signed Impressions: Service Date/Time: Thursday, January 19, 2017 19:34 - CONCLUSION: 1. Negative for pulmonary embolus. Small pleural effusions. Moderate coronary calcifications. Mild mediastinal adenopathy. Mild interstitial edema. Alan Macias MD Objective Remarks GENERAL: Well-nourished, obese, well-developed patient in NAD. SKIN: Warm and dry. No rash. HEENT:Normocephalic. Atraumatic. Pupils equal and round. No scleral icterus. No injection or drainage. No nasal bleeding or discharge. Mucous membranes pink and moist. Supple. Trachea midline. CARDIOVASCULAR: Atrial fibrillation, controlled. No murmur appreciated. RESPIRATORY: No accessory muscle use. CTA. Breath sounds equal bilaterally. GASTROINTESTINAL: Abdomen soft, non-tender, nondistended. Normoactive bowel sounds x4. MUSCULOSKELETAL: No obvious deformities. Extremities without clubbing. Patient with history of Raynauds, bilateral fingertips with blue discoloration, cap refill > 3 seconds. Trace bilateral lower extremity edema noted. NEUROLOGICAL: Awake and alert. No obvious cranial nerve deficits. Motor grossly within normal limits. Normal speech. PSYCHIATRIC: Appropriate mood and affect; insight and judgment normal. Urinary Catheter: No Vascular Central Line Catheter: No A/P Assessment and Plan Ms. Amaya is a 76 year-old female with a history of COPD, atrial fibrillation, congestive heart failure, type 2 diabetes mellitus, two recent episodes of pneumonia, and hypothyroidism who presented to the ER with complaints of shortness of breath after traveling from [place] by air. Congestive heart failure with pulmonary edema - Chest x-ray reviewed by me, mild congestive heart failure. CT angiogram reviewed by me, negative for pulmonary embolus; small pleural effusions; moderate coronary calcifications; mild mediastinal adenopathy; mild interstitial edema. - BNP initially 669, now 720 on 01/20. Repeat BNP in am. - Continue diuresis, Lasix 20 mg daily. - Monitor strict intake and output. - ECHO ordered and pending. - Cardiology consulted, input to continue current management with current IV antibiotics. F/u with cardiology in outpatient setting. Elevated Troponin - Initially 0.13 --> 0.11 --> 0.07 on 01/20. - Cardiology aware, no further recommendations. Acute kidney injury likely secondary to possible UTI. - UA reviewed, showing small amount of urine leukocyte esterase. - Continue IVF NS at 50ml/hr. Encourage PO intake. Urine culture pending, await results. - Continue ceftriaxone 1 g IV Q 24 hrs. Chronic obstructive pulmonary disease - Patient on 4 L home O2 at night. Wean O2 as tolerated to keep sats > 90%. Atrial fibrillation, controlled - EKG reviewed by me, probable atrial fibrillation with PVCS and incomplete LBBB. - Continue amiodarone 200 mg daily. - Continue Eliquis. - Monitor cardiac telemetry. Type 2 diabetes mellitus - Continue sliding scale insulin, coverage as needed. - Continue 1800 ADA diet. Hypertension, relatively controlled - Continue Cozaar 100 mg PO daily. - Monitor. DVT prophylaxis: SCDs. Continue home Eliquis. Attestation Patient seen and examined with KEVIN Walter. The exam, history, and the medical decision-making described in the above note were completed with the assistance of the dictating practitioner. I attest that I had a [id number] encounter with the patient on the same day, and personally performed all of the history, exam, or medical decision making. Discussed case with her thoroughly after seeing the patient, reviewed and agreed with the plan. Please see addendum in History, Physical examination. See below for any errata/additional input: Patient shortness of breath is better, no nausea or vomiting. Troponin is going down. Echocardiogram is pending Decreased breath sounds but otherwise clear, no crackles Continue Lasix twice a day, no symptoms with UTI, stop antibiotics. TTE pending. Wean oxygen. Sonal Tay January 21, 2017 10:29 Celestina Arias MD January 22, 2017 16:51
--- NOTE | 2017-01-21 11:45 | EC ---
Study Study Date:01/21/2017 STUDY CONCLUSIONS SUMMARY - Left ventricle: The cavity size was normal. Wall thickness was normal. Systolic function was moderately to severely reduced. The estimated ejection fraction was in the range of 30% to 35%. Wall motion was normal; there were no regional wall motion abnormalities. - Mitral valve: Mildly calcified annulus. Moderate to severe regurgitation. - Left atrium: The atrium was dilated. - Pulmonary arteries: PA peak pressure: 47mm Hg (S). If LV function is below 40, please consider prescribing an ACEI or ARB or document rationale for non-use. PROCEDURE DATA STUDY STATUS: Elective. Procedure: Transthoracic echocardiography. Image quality was good. Scanning was performed from the parasternal, apical, and subcostal acoustic windows. Study completion: The patient tolerated the procedure well. Transthoracic echocardiography. M-mode, complete 2D, complete spectral Doppler, and color Doppler. Patient status: Inpatient. CARDIAC ANATOMY LEFT VENTRICLE: The cavity size was normal. Wall thickness was normal. Systolic function was moderately to severely reduced. The estimated ejection fraction was in the range of 30% to 35%. Wall motion was normal; there were no regional wall motion abnormalities. AORTIC VALVE: Trileaflet; normal thickness leaflets. Doppler: Transvalvular velocity was within the normal range. There was no stenosis. No regurgitation. AORTA: Aortic root: The aortic root was normal in size. MITRAL VALVE: Mildly calcified annulus. Doppler: Transvalvular velocity was within the normal range. There was no evidence for stenosis. Moderate to severe regurgitation. LEFT ATRIUM: The atrium was dilated. RIGHT VENTRICLE: The cavity size was normal. Wall thickness was normal. PULMONIC VALVE: Doppler: Transvalvular velocity was within the normal range. There was no evidence for stenosis. No regurgitation. TRICUSPID VALVE: Structurally normal valve. Doppler: Transvalvular velocity was within the normal range. No regurgitation. PULMONARY ARTERY: The main pulmonary artery was normal-sized. Systolic pressure was within the normal range. RIGHT ATRIUM: The atrium was normal in size. PERICARDIUM: There was no pericardial effusion. SYSTEMIC VEINS: Inferior vena cava: The vessel was normal in size. BASIC MEASUREMENTS ADULT Normal Left ventricle LV internal dimension, ED, chordal level, 51.5 mm 43-52 PLAX LV internal dimension, ES, chordal level, *46.1 mm 23-38 PLAX Fractional shortening, chordal level, PLAX *10 % >29 LV posterior wall thickness, ED 14.6 mm IVS/LVPW ratio, ED 1.14 <1.3 Ventricular septum Septal thickness, ED 16.6 mm Aortic valve Leaflet separation 16 mm 15-26 Right ventricle RV internal dimension, ED, PLAX 33.2 mm 19-38 BASIC MEASUREMENTS ADULT Normal Aortic valve Leaflet separation 16 mm 15-26 Aorta Root diameter, ED 27 mm 20-37 Left atrium Anterior-posterior dimension, ES *52 mm 19-40 LA/aortic root ratio 1.93 DOPPLER MEASUREMENTS ADULT Normal Main pulmonary artery Pressure, S *47 mm Hg =30 Tricuspid valve Regurgitant peak velocity 306 cm/s Peak RV-RA gradient, S 37 mm Hg Maximal regurgitant velocity 306 cm/s Systemic veins Estimated CVP 10 mm Hg Right ventricle RV pressure, S *47 mm Hg <30 LEGEND: Mean values are shown as u=mean value. Asterisk (*) larson values outside specified normal range. Prepared and signed by Dannie Root [id number]
--- NOTE | 2017-01-21 16:47 | HHI.PR ---
Subjective Remarks Feeling better Objective Vital Signs Date Time Temp Pulse Resp B/P Pulse Ox O2 Delivery O2 Flow Rate FiO2 01/21/17 16:00 98.0 66 18 152/89 96 01/21/17 12:24 98.0 64 18 142/78 01/21/17 09:04 98.0 82 18 152/74 96 01/21/17 07:45 Nasal Cannula 2.00 01/21/17 06:00 55 01/21/17 05:00 57 01/21/17 04:00 66 01/21/17 04:00 Nasal Cannula 2.00 01/21/17 04:00 98.4 66 18 140/74 98 01/21/17 03:00 57 01/21/17 02:00 55 01/21/17 01:00 58 01/21/17 00:00 98.2 58 18 123/67 98 01/21/17 00:00 Nasal Cannula 3.00 01/21/17 00:00 59 01/20/17 23:00 64 01/20/17 22:00 71 01/20/17 21:00 74 01/20/17 20:00 98.0 70 18 136/81 100 01/20/17 20:00 70 I/O 01/20/17 01/20/17 01/20/17 01/21/17 01/21/17 01/21/17 07:00 15:00 23:00 07:00 15:00 23:00 Intake Total 250 ml 720 ml 1080 ml 0 ml Output Total 700 ml Balance 250 ml 720 ml 380 ml 0 ml Intake Oral 150 ml 720 ml 480 ml IV Total 100 ml 600 ml 0 ml Output Urine Total 700 ml # Voids 1 4 # Bowel Movements 2 1 Result Diagram: 01/20/1792301/20/17923 Imaging Alert, fully oriented Lungs: ventilated Heart: S1, S2 irregular Abdomen: soft, no mass Last Impressions Chest X-Ray 01/19/171846 Signed Impressions: Service Date/Time: Thursday, January 19, 2017 18:54 - CONCLUSION: 1. Mild congestive heart failure. Alan Macias MD CT Angiography 01/19/171846 Signed Impressions: Service Date/Time: Thursday, January 19, 2017 19:34 - CONCLUSION: 1. Negative for pulmonary embolus. Small pleural effusions. Moderate coronary calcifications. Mild mediastinal adenopathy. Mild interstitial edema. Alan Macias MD Ext: no edema Current Medications Medications (Trade) Dose Ordered Sig/Jamin Route Start Time Stop Time Status Last Admin (D50w (Vial) Inj) 25 ml UNSCH PRN IV PUSH 01/19/17 21:00 (Glucagon Inj) 1 mg UNSCH PRN OTHER 01/19/17 21:00 (NS Flush) 2 ml UNSCH PRN IV FLUSH 01/19/17 21:00 (NS Flush) 2 ml BID IV FLUSH 01/19/17 21:00 01/21/17 08:29 (Zofran Inj) 4 mg Q6H PRN IVP 01/19/17 21:00 (Dulcolax Supp) 10 mg DAILY PRN RECTAL 01/19/17 21:00 (Tylenol) 650 mg Q6H PRN PO 01/19/17 21:00 ([place] 5-325 Mg) 1 tab Q4H PRN PO 01/19/17 21:00 (Morphine Inj) 2 mg Q3H PRN IV 01/19/17 21:00 (Cordarone) 200 mg DAILY PO 01/20/17 09:00 01/21/17 08:29 (Eliquis) 5 mg BID PO 01/19/17 21:00 01/21/17 08:29 (Cozaar) 100 mg DAILY PO 01/20/17 09:00 01/21/17 08:29 (Synthroid) 125 mcg DAILY@06 PO 01/20/17 06:06 01/21/17 05:24 (Lasix) 20 mg DAILY PO 01/21/17 09:00 01/21/17 08:29 Assessment and Plan Problem List: (1) Pulmonary edema with congestive heart failure Status: Acute Plan: SOB significantly improve Echo indicated EF around 30% Meds will be modified (2) Atrial fibrillation Status: Acute Plan: HR controlled. On Blaise BENAVIDEZ at home already scheduled cardioversion Sinus rhythm may improve EF and heart failure symptoms Case discussed with patient If stable can be DH in AM Anup Mcgrath MD January 21, 2017 16:47
[2017-01-21] MEDS: SPIRONOLACTONE 25 MG TAB PO SCH (17:00)
[2017-01-22] VITALS (11 sets, daily range): BP systolic 136–150; BP diastolic 75–85; PULSE 52–80; RESP 18–20; TEMP 97.8–98.3; O2SAT 94–99
[2017-01-22 05:29] LABS: AUTOMATED NEUTROPHIL # 5.1 TH/MM3 (1.8-7.7); BASOPHIL # 0.1 TH/MM3 (0-0.2); EOSINOPHIL # 0.2 TH/MM3 (0-0.4); EOSINOPHIL % 3.2 % (0.0-4.0); HEMATOCRIT 37.2 % (35.0-46.0); HEMO FLAGS DIFF FINAL; LYMPH % 15.5 % (9.0-44.0); LYMPHOCYTE # 1.1 TH/MM3 (1.0-4.8); MEAN CELL VOLUME 95.2 FL (80.0-100.0); MEAN CORPUSCULAR HEMOGLOBIN 31.7 PG (27.0-34.0); MEAN CORPUSCULAR HGB CONC 33.3 % (32.0-36.0); MONO % 7.1 % (0.0-8.0); NEUT % 73.2 % (16.0-70.0); PLATELET COUNT 223 TH/MM3 (150-450); RED CELL DISTRIBUTION WIDTH 19.2 % (11.6-17.2)
[2017-01-22 05:50] LABS: BICARBONATE 28.3 MEQ/L (21.0-32.0); POTASSIUM 3.6 MEQ/L (3.5-5.1)
[2017-01-22] MEDS: INSULIN ASPART SUPPLEMENTAL SCALE SQ SCH (06:05)
[2017-01-22] MEDS: LEVOTHYROXINE SODIUM 125 MCG TAB PO SCH (06:12)
[2017-01-22] MEDS ORDERED: FURO20TA PO (07:45)
[2017-01-22] MEDS ORDERED: Spironolactone PO (07:45)
--- NOTE | 2017-01-22 07:47 | HHI.DCPOC ---
Discharge Care Plan Diagnosis: (1) Atrial fibrillation (2) Pulmonary edema with congestive heart failure Your Health Problems Are: Shortness of Breath Goals to Promote Your Health * To prevent worsening of your condition and complications * To maintain your health at the optimal level Directions to Meet Your Goals Take your medications as prescribed Follow your dietary instruction Follow activity as directed Keep your appointments as scheduled Take your immunizations and boosters as scheduled If your symptoms worsen call your PCP, if no PCP go to Urgent Care Center or Emergency Room Smoking is Dangerous to Your Health. Avoid second hand smoke Call the 24-hour hour crisis hotline for domestic abuse at Celestina Arias MD January 22, 2017 07:47
--- NOTE | 2017-01-22 08:21 | PD.CARD.PN ---
Subjective Subjective Remarks Feeling better. Would like to go home. Objective Medications Current Medications Medications (Trade) Dose Ordered Sig/Jamin Route Start Time Stop Time Status Last Admin (D50w (Vial) Inj) 25 ml UNSCH PRN IV PUSH 01/19/17 21:00 (Glucagon Inj) 1 mg UNSCH PRN OTHER 01/19/17 21:00 (NS Flush) 2 ml UNSCH PRN IV FLUSH 01/19/17 21:00 (NS Flush) 2 ml BID IV FLUSH 01/19/17 21:00 01/21/17 21:00 (Zofran Inj) 4 mg Q6H PRN IVP 01/19/17 21:00 (Dulcolax Supp) 10 mg DAILY PRN RECTAL 01/19/17 21:00 (Tylenol) 650 mg Q6H PRN PO 01/19/17 21:00 ([place] 5-325 Mg) 1 tab Q4H PRN PO 01/19/17 21:00 (Morphine Inj) 2 mg Q3H PRN IV 01/19/17 21:00 (Cordarone) 200 mg DAILY PO 01/20/17 09:00 01/21/17 08:29 (Eliquis) 5 mg BID PO 01/19/17 21:00 01/21/17 21:40 (Cozaar) 100 mg DAILY PO 01/20/17 09:00 01/21/17 08:29 (Synthroid) 125 mcg DAILY@06 PO 01/20/17 06:06 01/22/17 06:12 (Lasix) 20 mg DAILY PO 01/21/17 09:00 01/21/17 08:29 (Aldactone) 25 mg DAILY PO 01/21/17 17:00 01/21/17 17:00 Vital Signs / I&O Vital Signs Date Time Temp Pulse Resp B/P Pulse Ox O2 Delivery O2 Flow Rate FiO2 01/22/17 07:00 94 Room Air 01/22/17 07:00 97.8 68 20 147/84 94 01/22/17 06:00 67 01/22/17 05:00 62 01/22/17 04:00 70 18 136/75 99 01/22/17 04:00 69 01/22/17 03:00 67 01/22/17 02:00 62 01/22/17 01:00 70 01/22/17 00:00 98.3 80 18 150/85 99 01/22/17 00:00 52 01/21/17 23:00 56 01/21/17 22:00 76 01/21/17 21:00 66 01/21/17 20:00 98.1 67 18 158/94 96 01/21/17 20:00 69 01/21/17 19:10 Nasal Cannula 1.00 01/21/17 19:00 70 01/21/17 16:00 98.0 66 18 152/89 96 01/21/17 12:24 98.0 64 18 142/78 01/21/17 09:04 98.0 82 18 152/74 96 I/O 01/21/17 01/21/17 01/21/17 01/22/17 01/22/17 01/22/17 07:00 15:00 23:00 07:00 15:00 23:00 Intake Total 1080 ml 0 ml 800 ml 360 ml Output Total 700 ml 1200 ml 700 ml Balance 380 ml 0 ml -400 ml -340 ml Intake Oral 480 ml 800 ml 360 ml IV Total 600 ml 0 ml 0 ml Output Urine Total 700 ml 1200 ml 700 ml # Bowel Movements 1 Physical Exam GENERAL: Well-nourished, obese, well-developed patient. SKIN: Warm and dry. HEAD: Normocephalic. EYES: No scleral icterus. No injection or drainage. NECK: Supple, trachea midline. No JVD or lymphadenopathy. CARDIOVASCULAR: Regular rate and rhythm without murmurs, gallops, or rubs. RESPIRATORY: Breath sounds equal bilaterally. No accessory muscle use. GASTROINTESTINAL: Abdomen soft, non-tender, nondistended. EXTREMITIES: No cyanosis, trace ankle edema. NEUROLOGICAL: Awake, alert, and oriented x 3. Non-focal. Laboratory Laboratory Tests Test 01/22/17 03:46 White Blood Count 7.0 TH/MM3 Red Blood Count 3.90 MIL/MM3 Hemoglobin 12.4 GM/DL Hematocrit 37.2 % Mean Corpuscular Volume 95.2 FL Mean Corpuscular Hemoglobin 31.7 PG Mean Corpuscular Hemoglobin 33.3 % Concent Red Cell Distribution Width 19.2 % Platelet Count 223 TH/MM3 Mean Platelet Volume 8.3 FL Neutrophils (%) (Auto) 73.2 % Lymphocytes (%) (Auto) 15.5 % Monocytes (%) (Auto) 7.1 % Eosinophils (%) (Auto) 3.2 % Basophils (%) (Auto) 1.0 % Neutrophils # (Auto) 5.1 TH/MM3 Lymphocytes # (Auto) 1.1 TH/MM3 Monocytes # (Auto) 0.5 TH/MM3 Eosinophils # (Auto) 0.2 TH/MM3 Basophils # (Auto) 0.1 TH/MM3 CBC Comment DIFF FINAL Differential Comment Sodium Level 136 MEQ/L Potassium Level 3.6 MEQ/L Chloride Level 98 MEQ/L Carbon Dioxide Level 28.3 MEQ/L Anion Gap 10 MEQ/L Blood Urea Nitrogen 33 MG/DL Creatinine 0.99 MG/DL Estimat Glomerular Filtration 54 ML/MIN Rate Random Glucose 103 MG/DL Calcium Level 9.3 MG/DL B-Type Natriuretic Peptide 158 PG/ML Imaging Last Impressions Chest X-Ray 01/19/171846 Signed Impressions: Service Date/Time: Thursday, January 19, 2017 18:54 - CONCLUSION: 1. Mild congestive heart failure. Alan Macias MD CT Angiography 01/19/171846 Signed Impressions: Service Date/Time: Thursday, January 19, 2017 19:34 - CONCLUSION: 1. Negative for pulmonary embolus. Small pleural effusions. Moderate coronary calcifications. Mild mediastinal adenopathy. Mild interstitial edema. Alan Mcaias MD Assessment and Plan Problem List: (1) Pulmonary edema with congestive heart failure Assessment and Plan: Improving on current therapy. Stable for discharge home from cardiac standpoint with follow-up with her home administrative director on current medications per my discussion with Dr. Mcrgath. (2) Atrial fibrillation Assessment and Plan: Normal sinus rhythm on telemetry today. On Eliquis for anticoagulation. Problem Qualifiers (1) Atrial fibrillation: Qualified Code: I48.0 - Paroxysmal atrial fibrillation Christina Gutierrez January 22, 2017 08:21
[2017-01-22] MEDS: SPIRONOLACTONE 25 MG TAB PO SCH (09:16)
[2017-01-22] MEDS: LOSARTAN 50 MG TAB PO SCH (09:17)
[2017-01-22] MEDS: FUROSEMIDE 20 MG TAB PO SCH (09:17)
[2017-01-22] MEDS: SODIUM CHLORIDE 0.9% FLUSH 10 ML FLUSH IV FLUSH SCH (09:17)
[2017-01-22] MEDS: APIXABAN 5 MG TABLET PO SCH (09:17)
[2017-01-22] MEDS: AMIODARONE 200 MG TAB PO SCH (09:17)
--- NOTE | 2017-01-22 09:39 | HHI.DS ---
Discharge Summary Admission Date January 19, 2017 at 20:58 Discharge Date: January 22, 2017 Admitting Diagnosis congestive heart failure with pulmonary edema, elevated troponin I (1) Pulmonary edema with congestive heart failure ICD Code: I50.1 Diagnosis: Principal (2) Elevated troponin I level ICD Code: R74.8 Diagnosis: Secondary (3) Urinary tract infection ICD Code: N39.0 Diagnosis: Principal Procedures None Brief History - From Admission Ms. Amaya is a 76 year-old female with a history of COPD, atrial fibrillation, congestive heart failure, type 2 diabetes mellitus, two recent episodes of pneumonia, and hypothyroidism who presented to the ER on 01/19/17 complaining of shortness of breath. She is visiting from [place] and arrived via air travel today. Chest x-ray showed congestive heart failure with pulmonary edema. CT pulmonary angiogram was negative for PE. BNP was elevated at 669. Initial troponin I also elevated at 0.13. The patient is seen in her hospital room. She reports that she has chronic shortness of breath with no recent increase until after her plane flight from [place] to [place] on 01/19/2017. She states she is here with her family and as soon as she landed in [place], she started having difficulty with shortness of breath with exertion. It got progressively worse and she was short of breath walking around the hotel room. "I can't even walk 6 feet without getting short of breath". Symptoms were accompanied by chills and diaphoresis. She denies chest pain with these symptoms but reports some mild nausea. She has new onset of atrial fibrillation in November following a couple of episodes of pneumonia with hospitalization. She is being anticoagulated prior to attempted elective cardioversion. She saw her window installer in [place] on before leaving and was cleared to travel. She denies any history of coronary artery disease/open heart surgery/stent placement. She denies any diarrhea, hematuria, or dysuria. . CBC/BMP: 01/22/17 0346 01/22/17 0346 Significant Findings Laboratory Tests Test 01/19/17 01/19/17 01/20/17 01/20/17 18:20 20:30 00:00 09:24 Red Cell Distribution Width 18.3 % 18.9 % (11.6-17.2) (11.6-17.2) Neutrophils (%) (Auto) 82.3 % 88.9 % (16.0-70.0) (16.0-70.0) Prothrombin Time 14.2 SEC (9.8-11.6) Activated Partial 32.4 SEC Thromboplast Time (24.3-30.1) Sodium Level 134 MEQ/L 134 MEQ/L (136-145) (136-145) Chloride Level 97 MEQ/L 93 MEQ/L (98-107) (98-107) Blood Urea Nitrogen 22 MG/DL (7-18) 23 MG/DL (7-18) Creatinine 1.10 MG/DL 1.22 MG/DL (0.50-1.00) (0.50-1.00) Estimat Glomerular Filtration 48 ML/MIN (>89) 43 ML/MIN (>89) Rate Random Glucose 164 MG/DL 156 MG/DL (74-106) (74-106) Total Bilirubin 1.3 MG/DL 1.8 MG/DL (0.2-1.0) (0.2-1.0) Creatine Kinase MB 5.5 NG/ML (0.5-3.6) Troponin I 0.13 NG/ML 0.11 NG/ML 0.07 NG/ML (0.02-0.05) (0.02-0.05) (0.02-0.05) B-Type Natriuretic Peptide 669 PG/ML 720 PG/ML (0-100) (0-100) Urine Protein 100 mg/dL (NEG-TRACE) Urine Occult Blood SMALL (NEG) Urine Leukocyte Esterase SMALL (NEG) Urine WBC 20-24 /hpf (0-5) Urine WBC Clumps FEW (NONE) Urine Bacteria OCC /hpf (NONE) Lymphocytes (%) (Auto) 6.7 % (9.0-44.0) Lymphocytes # (Auto) 0.4 TH/MM3 (1.0-4.8) Aspartate Amino Transf 13 U/L (15-37) (AST/SGOT) Test 01/22/17 03:46 Red Blood Count 3.90 MIL/MM3 (4.00-5.30) Red Cell Distribution Width 19.2 % (11.6-17.2) Neutrophils (%) (Auto) 73.2 % (16.0-70.0) Blood Urea Nitrogen 33 MG/DL (7-18) Estimat Glomerular Filtration 54 ML/MIN (>89) Rate B-Type Natriuretic Peptide 158 PG/ML (0-100) Imaging Last Impressions Chest X-Ray 01/19/171846 Signed Impressions: Service Date/Time: Thursday, January 19, 2017 18:54 - CONCLUSION: 1. Mild congestive heart failure. Alan Macias MD CT Angiography 01/19/171846 Signed Impressions: Service Date/Time: Thursday, January 19, 2017 19:34 - CONCLUSION: 1. Negative for pulmonary embolus. Small pleural effusions. Moderate coronary calcifications. Mild mediastinal adenopathy. Mild interstitial edema. Alan Macias MD PE at Discharge GENERAL: Well-nourished, obese, well-developed patient in NAD. SKIN: Warm and dry. No rash. HEENT:Normocephalic. Atraumatic. Pupils equal and round. No scleral icterus. No injection or drainage. No nasal bleeding or discharge. Mucous membranes pink and moist. Supple. Trachea midline. CARDIOVASCULAR: Atrial fibrillation, controlled. No murmur appreciated. RESPIRATORY: No accessory muscle use. CTA. Breath sounds equal bilaterally. GASTROINTESTINAL: Abdomen soft, non-tender, nondistended. Normoactive bowel sounds x4. MUSCULOSKELETAL: No obvious deformities. Extremities without clubbing. Trace bilateral lower extremity edema noted, improved from yesterday. NEUROLOGICAL: Awake and alert. No obvious cranial nerve deficits. Motor grossly within normal limits. Normal speech. PSYCHIATRIC: Appropriate mood and affect; insight and judgment normal. Pt update on day of discharge Follow up shortness of breath. Patient seen and examined today. Patient denies any further shortness of breath, on RA with O2 Sats 94%. She states she is feeling much better today, denies any acute complaints. Has been OOB. Tolerating PO intake. Denies any recent fever, chills, shortness of breath or chest pain. Attestation Patient seen and examined with KEVIN Walter. The exam, history, and the medical decision-making described in the above note were completed with the assistance of the dictating practitioner. I attest that I had a [id number] encounter with the patient on the same day, and personally performed all of the history, exam, or medical decision making. Discussed case with her thoroughly after seeing the patient, reviewed and agreed with the plan. Please see addendum in History, Physical examination. See below for any errata/additional input: On room air, not short of breath, no chest pain. Clear breath sounds, no wheezing Discharged on Lasix, Aldactone per cardiology. Discussed with patient. May go home today. - [place] BENAVIDEZ Hospital Course Ms. Amaya is a 76 year-old female with a history of COPD, atrial fibrillation, congestive heart failure, type 2 diabetes mellitus, two recent episodes of pneumonia, and hypothyroidism who presented to the ER with complaints of shortness of breath after traveling from [place] by air. Chest x-ray reviewed showing mild congestive heart failure. CT angiogram reviewed, negative for pulmonary embolus; small pleural effusions; moderate coronary calcifications ; mild mediastinal adenopathy; mild interstitial edema. BNP initially 669 --> 720 --> 158 at discharge. Troponin initially elevated 0.13 --> 0.11 --> 0.07. ECHO was performed showing an EF of 30%. Cardiology, Dr. Mcgrath, followed patient through hospital course, recommended adding spirolactone and lasix to regimen along with continuing home hydrochlorothiazide and amiodarone. Encouraged patient to limit salt intake and fluid restriction. Acute kidney injury likely secondary to possible UTI indicative by creatinine 1.22. UA reviewed, showing small amount of urine leukocyte esterase. Given fluids and ceftriaxone IV. Patient asymptomatic and creatinine 0.99 on discharge. EKG reviewed, probable atrial fibrillation with PVCs and incomplete LBBB. Patient in a controlled atrial fibrillation rhythm throughout admission. Continue home Eliquis and Amiodarone. Chronic obstructive pulmonary disease with patient on home O2 4 L NC at night. Patient initially required supplemental O2, and eventually weaned down to RA with O2 Sats 94%. Patient with Type 2 Diabetes Mellitus, recommend diabetic, heart healthy diet on discharge and continue home insulin as recommended. Hypertension controlled throughout hospital course, will continue home medications as indicated. Pt Condition on Discharge: Good Discharge Disposition: Discharge Home Discharge Time: > 30 minutes Discharge Instructions DIET: Follow Instructions for: Heart Healthy Diet, Low Sodium Diet Activities you can perform: Regular-No Restrictions Follow up Referrals: Cardiology - 1 Week PCP Follow-up - 1 Week New Medications: Furosemide (Furosemide) 20 Mg Tab 20 MG PO DAILY CHF #30 TAB ([Spironolactone]) 25 MG TAB 25 MG PO DAILY chf #30 TAB Continued Medications: Amiodarone (Amiodarone) 200 Mg Tab 200 MG PO DAILY Regulate Heart Beat #30 Ref 0 TAB Apixaban (Eliquis) 5 Mg Tab 5 MG PO BID Blood Clot Prevention #60 Ref 0 TAB Hydrochlorothiazide (Hydrochlorothiazide) 25 Mg Tab 25 MG PO DAILY #30 Ref 0 TAB Levothyroxine (Levothyroxine) 125 Mcg Tab 125 MCG PO DAILY Thyroid #30 Ref 0 TAB Losartan (Losartan) 100 Mg Tab 100 MG PO DAILY Blood Pressure Management #30 Ref 0 TAB Metformin (Metformin) 1,000 Mg Tab 1000 MG PO BIDPC With meals Blood Sugar Management #60 Ref 0 TAB Sonal Tay January 22, 2017 09:39 Celestina Arias MD January 22, 2017 17:09
== END 2017-01-22 11:06 | disposition home or self-care (01) | DRG 292 ==
LOC: PHED 18:00 → PHEDA 20:58 → HCIS 01-20 00:59
PROVIDERS: ADMIT Hospitalist; ATTEND Hospitalist
DX: I11.0 Hypertensive heart disease with heart failure (principal); N17.9 Acute kidney failure, unspecified; Z99.81 Dependence on supplemental oxygen; N39.0 Urinary tract infection, site not specified; I48.0 Paroxysmal atrial fibrillation; J44.9 Chronic obstructive pulmonary disease, unspecified; I50.9 Heart failure, unspecified; E11.9 Type 2 diabetes mellitus without complications; E03.9 Hypothyroidism, unspecified; E66.9 Obesity, unspecified; I44.7 Left bundle-branch block, unspecified; Z79.84 Long term (current) use of oral hypoglycemic drugs; Z87.891 Personal history of nicotine dependence; Z68.36 Body mass index [BMI] 36.0-36.9, adult
CPT/HCPCS: 71010; 71275; 76937; 80048; 80053; 81001; 82550; 82552; 82948; 83880; 84484; 85025; 85610; 85730; 87086; 93005; 93306; 94640; 94664; 96374; 96375; J0696; J1815; J1940; J2930; J7030; Q9967